=== PATIENT | female | born 1970 | race Caucasian/White ===

== ENCOUNTER 2017-08-03 11:14 | Emergency (ER) | payer SELFPAY ==
[~2017-08-03] VITALS: Ht 165.1 cm; Wt 103.0 kg
[~2017-08-03 11:14] MED LIST: PROT40TA PO; ZOFR4TAB3 SL
[2017-08-03 11:28] VITALS: BP 175/107; PULSE 75; RESP 16; TEMP 98.7; O2SAT 96
[2017-08-03] MEDS ORDERED: CLOT1CRE TOPICAL (11:53)
[2017-08-03] MEDS ORDERED: NYST10007 TOPICAL (11:53)
--- NOTE | 2017-08-03 12:00 | PD ---
HPI Chief Complaint: Skin Problem Time Seen by Provider: 11:37 Travel History International Travel<30 days: No Contact w/Intl Traveler<30days: No Traveled to known affect area: No History of Present Illness HPI 38-year-old female presents to the ED for evaluation of rash to the groin area as well as below the breast appears to be spreading. Per patient she has had this for about 2 months. Started mainly in the groin and underneath the breast. Very pruritic with some desquamation of skin with white puslike skin when she scratches. Patient concerned because a spreading to her arms and legs and her back. No history of this in the past. No other medical issues. Allergies to medication. Has not taken anything for this. Has not seen anybody for this. 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 No pain. Worsening the past 1 week. PFSH Past Medical History Hypertension: Yes (PCP SAID TO "WATCH" HER BP, DID NOT PLACE ON MEDICATION) Tetanus Vaccination: > 5 Years Influenza Vaccination: No ?: Not LMP: ONE MONTH Tubal Ligation: Yes (2001) Past Surgical History Cholecystectomy: Yes (2013) Social History Alcohol Use: Yes (OCCAS) Tobacco Use: Yes (1 PPD) Substance Use: No Allergies-Medications (Allergen,Severity, Reaction): Coded Allergies: No Known Allergies (Verified Adverse Reaction, Unknown, 08/03/17) Reported Meds & Prescriptions Reported Meds & Active Scripts Active Nystop Topical (Nystatin Topical) 100,000 Unit/Gm Powd 1 Applic TOPICAL Q12HR Clotrimazole Topical (Clotrimazole) 1% Cream 1 Applic TOPICAL BID 30 Days Zofran ODT (Ondansetron HCl) 4 Mg Tab 4 Mg SL Q6HR FOR NAUSEA/VOMITING Protonix (Pantoprazole Sodium) 40 Mg Tab 40 Mg PO DAILY 30 Days Review of Systems Except as stated in HPI: all other systems reviewed are Neg Physical Exam Narrative GENERAL: SKIN: Warm and dry. Seen with female nurse present at all times. patient has a raised plaque like rash with whitish skin that is pruritic noted mainly underneath the breasts as well as underneath the groin area. She has a couple of circular-like lesions similar to the ones on the groin and breasts that are noted on the right arm and the back. HEAD: Atraumatic. Normocephalic. EYES: Pupils equal and round. No scleral icterus. No injection or drainage. ENT: No nasal bleeding or discharge. Mucous membranes pink and moist. NECK: Trachea midline. No JVD. CARDIOVASCULAR: Regular rate and rhythm. RESPIRATORY: No accessory muscle use. Clear to auscultation. Breath sounds equal bilaterally. GASTROINTESTINAL: Abdomen soft, non-tender, nondistended. Hepatic and splenic margins not palpable. MUSCULOSKELETAL: Extremities without clubbing, cyanosis, or edema. No obvious deformities. NEUROLOGICAL: Awake and alert. No obvious cranial nerve deficits. Motor grossly within normal limits. Five out of 5 muscle strength in the arms and legs. Normal speech. PSYCHIATRIC: Appropriate mood and affect; insight and judgment normal. Data Data Last Documented VS Vital Signs Date Time Temp Pulse Resp B/P (MAP) Pulse Ox O2 Delivery O2 Flow Rate FiO2 08/03/17 11:28 98.7 75 16 175/107 (129) 96 Orders Orders Ed Discharge Order (08/03/17 11:53) MDM Medical Decision Making Medical Screen Exam Complete: Yes Emergency Medical Condition: Yes Medical Record Reviewed: Yes Differential Diagnosis Tinea corporis versus tinea infection versus dermatitis Narrative Course 38-year-old female that presents to the ED for evaluation of rash. Patient was properly examined with female nurse present and appears to have what appears to be tinea corporis. Likely spreading secondary to patient scratching it. At this time recommendation is for trial of topical creams which she would alleviate symptoms. Patient was told that this does take some time and patient needs to be dermatological with applying the cream. Close follow-up with PCP and last putter away if symptoms do not resolve. See ED worsening symptoms. Diagnosis Primary Impression: Tinea corporis Patient Instructions: General Instructions Additional Instructions: Apply cream as prescribed. She will need to do this until symptoms resolve. If in about 1 month symptoms have not improved at all please follow-up with PCP or last putter away for further evaluation. Keep yourself trying to prevent furthering of the infection. Avoid scratching with her fingernails and fingers as this will likely spread the disease on your skin. See ED if worsening symptoms. He can take Benadryl to help with the itch as well as apply ice to the areas to help with itching. I would avoid any steroid medications as this can make the symptoms worse. Med/Other Pt SpecificInfo: Prescription(s) given Scripts Nystatin Topical (Nystop Topical) 100,000 Unit/Gm Powd 1 APPLIC TOPICAL Q12HR for Infection, #15 GM 0 Refills Prov: Wale Colin MD 08/03/17 Clotrimazole Topical (Clotrimazole Topical) 1% Cream 1 APPLIC TOPICAL BID for 30 Days, #30 GM 3 Refills Prov: Wale Colin MD 08/03/17 Disposition: 01 DISCHARGE HOME Condition: Efra Camejo August 03, 2017 12:00
== END 2017-08-03 12:08 | disposition home or self-care (01) ==
LOC: PHEFT 11:14
DX: B35.4 Tinea corporis (principal); I10 Essential (primary) hypertension; F17.200 Nicotine dependence, unspecified, uncomplicated; Z79.899 Other long term (current) drug therapy
CPT/HCPCS: 99283